=== PATIENT | male | born 1950 | race Hispanic/Latino ===

== ENCOUNTER 2018-02-01 11:18 | Emergency (ER) | payer MEDICARE, OTHER ==
[2018-02-01] MEDS ORDERED: Adacel (T-DAP) 0.5 ML VIAL ONE (12:29)
[2018-02-01] MEDS ORDERED: Lidocaine 1% w/Epinephrine 1:100K 20 ML VIAL ONE ×2 (12:30→12:31)
[2018-02-01] MEDS ORDERED: HyperTET 250 UNITS/ML 1 ML SYRINGE IM ONE (13:15)
== END 2018-02-01 13:31 | disposition home or self-care (01) ==
LOC: ERS 11:18
DX: S01.111A Laceration without foreign body of right eyelid and periocular area, initial encounter (principal); W19.XXXA Unspecified fall, initial encounter
CPT/HCPCS: 12013; 90471; 90715; 96372; J1670; J2001

== ENCOUNTER 2018-05-28 08:59 | Outpatient (CLI) | payer MEDICARE, BC ==
--- NOTE | 2018-05-28 11:26 | RAD ---
FRONTAL VIEW ABDOMEN KUB: INDICATIONS: Gastric pain for two weeks. Abdominal bloating. Abnormal finding on diagnostic imaging of abdomen. COMPARISON: There are no prior comparisons available. TECHNIQUE: Two views provided. FINDINGS: There is no free air identified on the provided views. The right hemidiaphragm is partially excluded from view, which does decrease sensitivity in this regard. There is moderate retained fecal materia l in the colon. Rounded densities overlying the pelvis bilaterally indicate phleboliths. There is o sseous degenerative change. IMPRESSION: 1. Moderate retained fecal material of the colon. 2. Nonobstructed bowel gas pattern. POS: [facility]
== END 2018-05-28 09:00 | disposition home or self-care (01) ==
LOC: BICRAD 08:59
PROVIDERS: ATTEND Family Medicine
DX: R93.5 Abnormal findings on diagnostic imaging of other abdominal regions, including retroperitoneum (principal); K59.00 Constipation, unspecified
CPT/HCPCS: 74018

== ENCOUNTER 2018-06-06 07:45 | Outpatient (CLI) | payer MEDICARE, BC ==
--- NOTE | 2018-06-06 08:18 | ULT ---
FAbdominal ultrasound: Grayscale images of abdomen obtained according to protocol. INDICATIONS: Abdominal pain and epigastric pain FINDINGS: Gallbladder has a normal sonographic appearance. No evidence of gallstones. Common bile duct is normal caliber measuring 3.5 mm. Liver and spleen appear unremarkable. Pancreas is mostly obscured but appears unremarkable as visualized. Visualized aorta and IVC appear unremarkable. The right kidney is unremarkable. There is a 1.5 x 2.2 x 1.6 cm mid pole left renal cortical cyst. No evidence of hydronephrosis seen. No evidence of ascites seen. IMPRESSION: Unremarkable abdominal ultrasound.
== END 2018-06-06 07:46 | disposition home or self-care (01) ==
LOC: BICULT 07:45
PROVIDERS: ATTEND Family Medicine
DX: R10.13 Epigastric pain (principal)
CPT/HCPCS: 76700

== ENCOUNTER 2018-06-14 08:07 | Outpatient (CLI) | payer MEDICARE, BC ==
--- NOTE | 2018-06-14 10:46 | RAD ---
FOUR VIEWS LEFT KNEE: Comparison: None. History: Osteoarthritis of the knee and left knee pain. FINDINGS: Four views of the left knee shows no evidence of acute fracture or dislocation. Mild joint space narr owing is seen in all three compartments consistent with osteoarthritis. No knee effusion is seen. IMPRESSION: Mild left knee osteoarthritis. POS: [facility]
--- NOTE | 2018-06-14 10:50 | RAD ---
FOUR VIEWS RIGHT KNEE: Comparison: None. History: Osteoarthritis with right knee pain. FINDINGS: Four views of the right knee shows mild to moderate tricompartmental joint space narrowing with osteo phyte formation consistent with osteoarthritis. No new effusion is seen. There is no evidence of acut e fracture or dislocation. IMPRESSION: Moderate right knee osteoarthritis. POS: [facility]
== END 2018-06-14 08:08 | disposition home or self-care (01) ==
LOC: BICRAD 08:07
PROVIDERS: ATTEND Family Medicine
DX: M17.0 Bilateral primary osteoarthritis of knee (principal)

== ENCOUNTER 2018-08-03 07:09 | Emergency (ER) | payer MEDICARE, BC ==
[2018-08-03 08:11] LABS: #Basophils 0.1 thou/uL (0.0-0.2); #Lymphocytes 1.5 thou/uL (1.20-3.40); #Monocytes 0.8 thou/uL (0.11-0.59); #Neutrophils 13.2 thou/uL (1.40-6.50); %Basophils 0.4 % (0.0-1.0); %Eosinophils 0.1 % (0.0-10.0); %Lymphocytes 9.8 % (21.0-51.0); %Neutrophils 84.6 % (42.0-75.0); Hemoglobin 17.2 g/dL (14.0-18.0); Mean Corpuscular HGB CONC 34.8 g/dL (32.0-36.0); Mean Corpuscular Hemoglobin 33.4 pg (27.0-31.0); Mean Corpuscular Volume 95.9 fL (78.0-98.0); Mean Platelet Volume 8.2 fL (7.4-10.4); Platelet Count 232 thou/uL (130-400); RBC Distribution Width 11.9 % (11.5-14.5); Red Blood Cell (RBC) Count 5.15 mill/uL (4.70-6.10); White Blood Cell (WBC) Count 15.6 thou/uL (4.8-10.8)
[2018-08-03 08:35] LABS: ALT (SGPT) 17 U/L (8-55); AST (SGOT) 19 U/L (5-34); Albumin 4.7 g/dL (3.4-4.8); Alkaline Phosphatase 67 U/L (40-150); Anion Gap 11 mmol/L (10-20); BUN (Urea Nitrogen) 16 mg/dL (8.4-25.7); Bilirubin, Total 0.9 mg/dL (0.2-1.2); Calc. Creatinine Clearance 0 mL/min (70-130); Calcium 10.2 mg/dL (7.8-10.44); Carbon Dioxide 27 mmol/L (23-31); Chloride 103 mmol/L (98-107); Estimated GFR-MDRD Greater than 90; Globulin 3.5 g/dL (2.4-3.5); Glucose 117 mg/dL (80-115); Potassium 4.2 mmol/L (3.5-5.1); Protein, Total 8.2 g/dL (5.8-8.1); Sodium 137 mmol/L (136-145)
[2018-08-03] MEDS ORDERED: Metoclopramide HCl 10 MG/2 ML VIAL ONE (08:59)
[2018-08-03] MEDS ORDERED: Acetaminophen 500 MG TAB ONE (08:59)
[2018-08-03] MEDS ORDERED: diphenhydrAMINE 50 MG/ML VIAL ONE (08:59)
[2018-08-03 09:04] LABS: Bilirubin Negative (Negative); Blood, Urine Trace (Negative); Clarity CLEAR (Clear); Glucose, Urine (Dipstick) Negative (Negative); Leukocyte Negative (Negative); Nitrite Negative (Negative); Protein, Urine (Dipstick) Negative (Neg-Trace); Specific Gravity, Urine 1.008 (1.002-1.036); Urobilinogen 0.2 mg/dL (0.2-1.0)
[2018-08-03 09:06] LABS: Bacteria/HPF None Seen HPF (None Seen); Hyaline Casts/LPF 0-3 HYALINE CAST LPF (0-3 Hyaline); Pathc Cast-AUWi Flag 0.13 (0-2.49); RBC/HPF 0-3 HPF (0-3); Squamous Epithelial None Seen HPF (0-3); WBC/HPF None Seen HPF (0-3)
--- NOTE | 2018-08-03 09:36 | CT ---
CT BRAIN WITHOUT CONTRAST: HISTORY: Dizziness, headache FINDINGS: No evidence of acute infarct, hemorrhage, midline shift or abnormal extra-axial fluid collections is seen. The ventricular size is appropriate and the basilar cisterns are patent. The bony calvarium is intact. The visualized paranasal sinuses and mastoid air cells are well aerated. IMPRESSION: No CT evidence of acute intracranial process.
== END 2018-08-03 10:28 | disposition home or self-care (01) ==
LOC: ERS 07:09
DX: R42 Dizziness and giddiness (principal); E03.9 Hypothyroidism, unspecified; E78.5 Hyperlipidemia, unspecified; Z79.899 Other long term (current) drug therapy
CPT/HCPCS: 36415; 70450; 80053; 81003; 81015; 84484; 85025; 93005; 96365; 96375; J1200; J2765

== ENCOUNTER 2018-12-07 06:59 | Day surgery (SDC) | payer MEDICARE, BC ==
[2018-12-06 11:24] VITALS: BMI 30.2
--- NOTE | 2018-12-07 01:07 | HP ---
HISTORY OF PRESENT ILLNESS: This is a 68-year-old Latin-Spanish male, comes for EGD because of abdominal pain. He does not speak Greek and most of the history was obtained talking to son and able to obtain history. The patient has abdominal pain over the last few weeks.The pain is intermittent. The pain occurs on empty stomach and also after meals. The pain was over the right upper quadrant epigastric area. It was sharp in nature, at times crampy in nature. No nausea or vomiting. The patient has been on pantoprazole for acid reflux. However, continued to have abdominal pain. The patient comes for EGD because of the above reason. ALLERGIES: NONE. MEDICAL ILLNESSES: 1. Hypothyroidism. 2. Chronic acid reflux. 3. Osteoarthritis. 4. Anxiety. 5. Seasonal allergies. 6. Appendectomy. 7. Sinus surgery. PHYSICAL EXAMINATION: GENERAL: Appears comfortable. VITAL SIGNS: Weight is 182 pounds, pulse is 70, blood pressure 120/70. HEENT: Conjunctivae clear. CARDIOVASCULAR: First and second heart sounds heard. LUNGS: Clear to auscultation. ABDOMEN: Soft. No organomegaly. Abdomen is tender over the epigastric area. There is no rebound or guarding. Bowel sounds are normal. ADMITTING DIAGNOSIS: Abdominal pain, chronic in nature. PLAN: EGD. Job ID: [id number] [facility]
[2018-12-07] MEDS ORDERED: PROPOFOL 200 MG/20 ML VIAL ONE (09:57)
--- NOTE | 2018-12-08 02:02 | OP ---
DATE OF PROCEDURE: 12/07/2018 PROCEDURE PERFORMED: Esophagogastroduodenoscopy with biopsy. PREOPERATIVE DIAGNOSIS: This is a 68-year-old male with abdominal pain, which has been persistent over the last several months. He is on pantoprazole and continues to have abdominal pain. There is mild nausea. No vomiting. He is undergoing EGD. POSTOPERATIVE DIAGNOSIS: Normal exam except for mild mucosal hyperemia of the gastric antrum. DESCRIPTION OF PROCEDURE: The patient was placed on his left lateral position and was given sedation by Anesthesia Department. A [employer] video gastroscope under direct vision passed down the oropharynx, past the GE junction into the stomach and subsequently into the descending duodenum. The vocal cords appeared very healthy. The esophageal mucosa appeared normal throughout. The GE junction, no pathology. Retroflexion failed to show any pathology in fundus or cardia. The gastric body, no pathology. The patient has mild mucosal hyperemia of the gastric antrum. The incisura angularis, no pathology. The duodenal bulb, descending duodenum, no pathology. The scope was withdrawn back to the stomach and biopsies obtained from gastric antrum and gastric body. The stomach was decompressed and the scope was removed. DISCHARGE PLANNING: This is a 68-year-old male came for EGD because of persistent abdominal pain. The EGD was basically negative. DISCHARGE RECOMMENDATION: 1. Continue pantoprazole as before. 2. Continue stopping meloxicam as that can cause some gastric upset. The patient will come back to me in 2 weeks. Job ID: [id number]
== END 2018-12-07 10:34 | disposition home or self-care (01) ==
LOC: SDC 06:59
PROVIDERS: ATTEND Internal Medicine Gastroenterology
PROC: 0DB78ZX Excision of Stomach, Pylorus, Via Natural or Artificial Opening Endoscopic, Diagnostic (ICD-10-PCS; principal; 2018-12-07)
DX: R10.11 Right upper quadrant pain (principal); R10.13 Epigastric pain; K21.9 Gastro-esophageal reflux disease without esophagitis; E03.9 Hypothyroidism, unspecified; M19.90 Unspecified osteoarthritis, unspecified site; F41.9 Anxiety disorder, unspecified; J30.2 Other seasonal allergic rhinitis; Z79.899 Other long term (current) drug therapy
CPT/HCPCS: 88305; 88312

== ENCOUNTER 2019-03-19 11:26 | Emergency (ER) | payer MEDICARE, BC ==
[2019-03-19 11:58] LABS: #Basophils 0.1 thou/uL (0.0-0.2); #Eosinphils 0.3 thou/uL (0.0-0.7); #Lymphocytes 2.3 thou/uL (1.20-3.40); #Monocytes 0.8 thou/uL (0.11-0.59); #Neutrophils 4.3 thou/uL (1.40-6.50); %Basophils 1.3 % (0.0-1.0); %Eosinophils 3.3 % (0.0-10.0); %Lymphocytes 29.5 % (21.0-51.0); %Monocytes 9.8 % (0.0-10.0); %Neutrophils 56.1 % (42.0-75.0); Hemoglobin 16.6 g/dL (14.0-18.0); Mean Corpuscular HGB CONC 33.6 g/dL (32.0-36.0); Mean Corpuscular Hemoglobin 33.4 pg (27.0-31.0); Mean Corpuscular Volume 99.4 fL (78.0-98.0); Mean Platelet Volume 8.2 fL (7.4-10.4); Platelet Count 195 thou/uL (130-400); RBC Distribution Width 11.6 % (11.5-14.5); Red Blood Cell (RBC) Count 4.97 mill/uL (4.70-6.10); White Blood Cell (WBC) Count 7.7 thou/uL (4.8-10.8)
[2019-03-19 12:17] LABS: ALT (SGPT) 19 U/L (8-55); AST (SGOT) 24 U/L (5-34); Albumin 4.4 g/dL (3.4-4.8); Alkaline Phosphatase 69 U/L (40-110); Anion Gap 13 mmol/L (10-20); BUN (Urea Nitrogen) 11 mg/dL (8.4-25.7); Bilirubin, Total 1.2 mg/dL (0.2-1.2); Calc. Creatinine Clearance 0 mL/min (70-130); Calcium 9.1 mg/dL (7.8-10.44); Carbon Dioxide 26 mmol/L (23-31); Chloride 105 mmol/L (98-107); Estimated GFR-MDRD Greater than 90; Globulin 2.8 g/dL (2.4-3.5); Glucose 89 mg/dL (80-115); Potassium 4.1 mmol/L (3.5-5.1); Protein, Total 7.2 g/dL (5.8-8.1); Sodium 140 mmol/L (136-145)
[2019-03-19] MEDS ORDERED: Diazepam 5 MG TAB ONE (13:34)
--- NOTE | 2019-03-19 13:39 | CT ---
CT HEAD WITHOUT CONTRAST: Date: 03/19/2019 COMPARISON: 08/03/2018. HISTORY: Dizziness. TECHNIQUE: Axial CT imaging obtained at 5 mm intervals from vertex through skull base without contrast. FINDINGS: The imaged paranasal sinuses and mastoid air cells are well aerated. No displaced calvarial fracture. No intracranial hemorrhage, midline shift, mass effect, or ventricular enlargement. IMPRESSION: Stable head CT. No acute findings. POS: [facility]
== END 2019-03-19 16:21 | disposition home or self-care (01) ==
LOC: ERS 11:26
DX: R42 Dizziness and giddiness (principal); E03.9 Hypothyroidism, unspecified; E78.5 Hyperlipidemia, unspecified; E78.00 Pure hypercholesterolemia, unspecified; Z79.899 Other long term (current) drug therapy
CPT/HCPCS: 36415; 70450; 80053; 84484; 85025; 93005; 96360; 96361

== ENCOUNTER 2020-05-19 10:25 | Outpatient (CLI) | payer MEDICARE, BC ==
[2020-05-19] MEDS ORDERED: Iopamidol 370 76% 100 ML VIAL ONE (10:39)
[2020-05-19 11:06] LABS: Estimated GFR-MDRD - POC Greater than 90
== END 2020-05-19 10:26 | disposition home or self-care (01) ==
LOC: BICCT 10:25
PROVIDERS: ATTEND Otolaryngology
DX: R13.10 Dysphagia, unspecified (principal); M54.2 Cervicalgia
CPT/HCPCS: 70491; 82565; Q9967

== ENCOUNTER 2020-06-14 22:36 | Emergency (ER) | payer MEDICARE, BC ==
[2020-06-14] MEDS ORDERED: Diazepam 5 MG TAB ONE ×2 (23:28→23:33)
[2020-06-14] MEDS ORDERED: Ondansetron ODT 8 MG TAB ONE (23:29)
== END 2020-06-15 00:20 | disposition home or self-care (01) ==
LOC: ERS 22:36
DX: R42 Dizziness and giddiness (principal); E03.9 Hypothyroidism, unspecified; E78.5 Hyperlipidemia, unspecified; E78.00 Pure hypercholesterolemia, unspecified
CPT/HCPCS: 93005; Q0162

== ENCOUNTER 2021-02-09 11:23 | Outpatient (CLI) | payer MEDICARE, BC | END 2021-02-09 11:24 | disposition home or self-care (01) | LOC: BICRAD 11:23 | PROVIDERS: ATTEND Family Medicine | DX: M25.552 Pain in left hip (principal); M79.18 Myalgia, other site; M54.32 Sciatica, left side; M47.816 Spondylosis without myelopathy or radiculopathy, lumbar region | CPT/HCPCS: 72100 ==

== ENCOUNTER 2022-07-06 10:29 | Outpatient (CLI) | payer MEDICARE, BC | END 2022-07-06 10:30 | disposition home or self-care (01) | LOC: RAD 10:29 | PROVIDERS: ATTEND Otolaryngology | DX: R13.11 Dysphagia, oral phase (principal); R13.12 Dysphagia, oropharyngeal phase; R63.30 Feeding difficulties, unspecified | CPT/HCPCS: 74230 ==

== ENCOUNTER 2022-10-24 13:09 | Emergency (ER) | payer MEDICARE, BC ==
[~2022-10-24 13:09] MED LIST: Iopamidol-370 76% 500 ML MDV (1 ML CHARGE) ONE
[2022-10-24 13:58] LABS: Bacteria/HPF None Seen HPF (None Seen); Bilirubin Negative (Negative); Blood, Urine Negative (Negative); CAUTI Indications for Culture Pelvic or flank pain; Clarity Clear (Clear); Glucose, Urine (Dipstick) Normal (Negative); Ketone, Urine Negative (Negative); Leukocyte Negative Leu/uL (Negative); Nitrite Negative (Negative); Protein, Urine (Dipstick) Negative (Neg-Trace); RBC/HPF 0-3 HPF (0-3); Specific Gravity, Urine 1.025 (1.002-1.036); Squamous Epithelial None Seen HPF (0-3); Urobilinogen Normal mg/dL (Less than 2); WBC/HPF 0-3 HPF (0-3); pH, Urine 5.5 (5.0-9.0)
[2022-10-24 14:01] LABS: Urine Culture Reflex No No
[2022-10-24 14:03] LABS: #Basophils 0.1 thou/uL (0.0-0.2); #Eosinphils 0.3 thou/uL (0.0-0.7); #Monocytes 0.9 thou/uL (0.11-0.59); #Neutrophils 3.7 thou/uL (1.40-6.50); %Basophils 0.7 % (0.0-1.0); %Lymphocytes 33.7 % (21.0-51.0); %Monocytes 12.3 % (0.0-10.0); %Neutrophils 49.2 % (42.0-75.0); Hematocrit 44.5 % (42.0-52.0); Mean Corpuscular HGB CONC 33.7 g/dL (32.0-36.0); Mean Corpuscular Hemoglobin 32.7 pg (27.0-31.0); Mean Corpuscular Volume 96.9 fl (78.0-98.0); Mean Platelet Volume 10.2 fL (7.4-10.4); Platelet Count 212 10x3/uL (130-400); Red Blood Cell (RBC) Count 4.59 mill/uL (4.70-6.10); White Blood Cell (WBC) Count 7.4 10x3/uL (4.8-10.8)
[2022-10-24 14:29] LABS: Troponin I Less than 0.010 ng/mL (< 0.028)
[2022-10-24 14:30] LABS: ALT (SGPT) 14 U/L (8-55); AST (SGOT) 19 U/L (5-34); Albumin 4.3 g/dL (3.4-4.8); Alkaline Phosphatase 54 U/L (40-110); Anion Gap 12 mmol/L (10-20); BUN (Urea Nitrogen) 16 mg/dL (8.4-25.7); Bilirubin, Total 0.7 mg/dL (0.2-1.2); Calc. Creatinine Clearance 0 mL/min (70-130); Calcium 9.8 mg/dL (7.8-10.44); Carbon Dioxide 27 mmol/L (23-31); Chloride 101 mmol/L (98-107); Estimated GFR 97; Globulin 2.9 g/dL (2.4-3.5); Glucose 102 mg/dL (80-115); Lipase 39 U/L (8-78); Potassium 3.8 mmol/L (3.5-5.1); Protein, Total 7.2 g/dL (5.8-8.1); Sodium 136 mmol/L (136-145)
== END 2022-10-24 16:21 | disposition home or self-care (01) ==
LOC: ERS 13:09
DX: K57.92 Diverticulitis of intestine, part unspecified, without perforation or abscess without bleeding (principal); E03.9 Hypothyroidism, unspecified; E78.00 Pure hypercholesterolemia, unspecified
CPT/HCPCS: 74177; 80053; 81001; 83690; 84484; 85025; 93005; Q9967